=== PATIENT | male | born 1980 | race Caucasian/White ===

== ENCOUNTER 2023-09-19 00:33 | Emergency (ER) | payer MEDICAID ==
[~2023-09-19] VITALS: Ht 177.8 cm; Wt 85.0 kg
[2023-09-19 00:35] VITALS: BP 136/86; PULSE 97; TEMP 98.2; O2SAT 97
[2023-09-19 03:06] VITALS: RESP 20
[2023-09-19] MEDS: metoclopramide 10mg tablet PO ONE (03:24)
[2023-09-19] MEDS: haloperidol 5mg tablet PO ONE (03:24)
[2023-09-19] MEDS: diphenhydrAMINE 25mg capsule PO ONE (03:24)
== END 2023-09-19 03:59 | disposition home or self-care (01) ==
LOC: ER 00:34
DX: G47.00 Insomnia, unspecified (principal)
CPT/HCPCS: 99284; Q0163

== ENCOUNTER 2023-09-29 17:45 | Emergency (ER) | payer MEDICAID ==
[~2023-09-29] VITALS: Ht 177.8 cm; Wt 84.5 kg
[~2023-09-29 17:45] MED LIST: IBUP-862 PO
[2023-09-29 17:46] VITALS: BP 140/75; PULSE 87; O2SAT 98
[2023-09-29] MEDS: ketorolac trometh. 30mg/ml inj. IM ONE (18:55)
[2023-09-29] MEDS: cyclobenzaprine 10mg tablet PO ONE (19:17)
[2023-09-29] MEDS: dexamethasone sod phosphate 10mg/ml inj IM STA (19:19)
[2023-09-29 19:20] VITALS: RESP 18
[2023-09-29] MEDS: ketorolac tromethamine 15mg/ml inj. IM ONE (19:20)
[2023-09-29 20:23] VITALS: TEMP 98
[2023-10-08] MEDS ORDERED: AMOX-580 PO (12:45)
== END 2023-09-29 20:46 | disposition home or self-care (01) ==
LOC: ER 17:45
DX: M25.551 Pain in right hip (principal); M25.552 Pain in left hip; Z79.1 Long term (current) use of non-steroidal anti-inflammatories (NSAID)
CPT/HCPCS: 72070; 72100; 96372; 99284; J1100; J1885

== ENCOUNTER 2023-10-06 22:17 | Emergency (ER) | payer MEDICAID ==
[~2023-10-06] VITALS: Ht 175.3 cm; Wt 81.0 kg
[2023-10-06 22:34] VITALS: BP 112/73; PULSE 93; RESP 18; O2SAT 98
[2023-10-07] MEDS ORDERED: IBUP-1984 PO (00:21)
[2023-10-07] MEDS: acetaminophen 325mg tablet PO ONE (00:33)
[2023-10-07] MEDS: ibuprofen tablet 400 MG TABLET PO ONE (00:34)
[2023-10-07 00:40] VITALS: TEMP 97.9
[2023-10-08] MEDS ORDERED: AMOX-580 PO (12:45)
== END 2023-10-07 00:43 | disposition home or self-care (01) ==
LOC: ER 22:18
DX: G89.29 Other chronic pain (principal); M25.562 Pain in left knee; Z79.1 Long term (current) use of non-steroidal anti-inflammatories (NSAID)
CPT/HCPCS: 99283